=== PATIENT | female | born 1955 | race Caucasian/White ===

== ENCOUNTER 2021-04-21 13:25 | Emergency (ER) | payer MEDICARE, OTHER, SELFPAY ==
--- NOTE | ~2021-04-21 | XR_ITS ---
EXAMINATION: RIGHT ANKLE AND RIGHT FOOT CLINICAL INFORMATION: Right foot pain. COMPARISON: None TECHNIQUE: Right ankle 2 views. Right foot 3 views. FINDINGS: Right foot: There is mild hallux valgus deformity first MTP joint with mild soft tissue swelling. No visible acute fracture, dislocation or lytic process seen. The soft tissues are normal. The ankle mortise and subtalar joints is normal. There is a small calcaneal heel enthesophytes. Right ankle: There is bimalleolar and anterior ankle soft tissue swelling. The ankle mortise and subtalar joints are normal. No visible acute fracture or dislocation seen. 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 There is no visible acute fracture or dislocation. A small calcaneal spurs seen. Mild hallux valgus deformity first MTP joint. No visible acute fracture, dislocation or lytic process seen.
--- NOTE | ~2021-04-21 | XR_ITS ---
EXAMINATION: RIGHT ANKLE AND RIGHT FOOT CLINICAL INFORMATION: Right foot pain. COMPARISON: None TECHNIQUE: Right ankle 2 views. Right foot 3 views. FINDINGS: Right foot: There is mild hallux valgus deformity first MTP joint with mild soft tissue swelling. No visible acute fracture, dislocation or lytic process seen. The soft tissues are normal. The ankle mortise and subtalar joints is normal. There is a small calcaneal heel enthesophytes. Right ankle: There is bimalleolar and anterior ankle soft tissue swelling. The ankle mortise and subtalar joints are normal. No visible acute fracture or dislocation seen. 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 There is no visible acute fracture or dislocation. A small calcaneal spurs seen. Mild hallux valgus deformity first MTP joint. No visible acute fracture, dislocation or lytic process seen.
[2021-04-21 15:46] VITALS: BP 143/73; PULSE 67; RESP 18; TEMP 36.6; O2SAT 98; BMI 25.0
[2021-04-21 16:42] LABS: Hematocrit 40.6 % (37-47); Hemoglobin 13.9 g/dl (12.0-16.0); Mean Corpuscular HGB Conc 34.2 g/dl (31.0-35.0); Mean Corpuscular Hemoglobin 32.3 pg (27.0-33.0); Mean Corpuscular Volume 94.2 fL (80-98); Mean Platelet Volume 10.3 fL (9.4-12.3); Platelet Count 137 X10*3/uL (160-400); Red Blood Count 4.31 X10*6/uL (4.20-5.50); Red Cell Distribution Width 12.5 % (11.0-16.0); White Blood Count 4.8 X10*3/uL (4.8-10.8)
[2021-04-21 17:02] LABS: Anion Gap 12 (12-20); Blood Urea Nitrogen 15 mg/dL (9-16); Calcium 9.8 mg/dL (8.4-10.2); Carbon Dioxide 27 mmol/L (22-29); Chloride 107 mmol/L (96-108); Creatinine Clr Calc Pharmacy 62.9; Estimated Glomerular Filt Rate > 60; Glucose Random 110 mg/dL (60-115); Potassium 4.3 mmol/L (3.3-5.1); Sodium 142 mmol/L (135-145)
--- NOTE | 2021-04-21 17:58 | ED.SKABFB ---
HPI - Skin/Abscess/Foreign Bdy General Chief complaint: Extremity Injury, Lower Stated complaint: inflamation Time Seen by Provider: 04/21/21 17:57 Source: patient Mode of arrival: ambulatory Limitations: no limitations History of Present Illness HPI narrative: Patient is 66 years old female with no significant past medical history notice small rash on dorsum of the right ankle 3 days ago which is getting worse now with increased redness and pain and slight swelling. complaint: rash Related Data Previous Rx's Medication Instructions Recorded cephalexin 500 mg capsule 500 mg PO QID 10 Days #40 cap 04/21/21 doxycycline hyclate 100 mg tablet 100 mg PO BID #20 tab 04/21/21 Allergies Allergy/AdvReac Type Severity Reaction Status Date / Time No Known Allergies Allergy Verified 04/21/21 15:52 Review of Systems Review of Systems: Yes all other systems are reviewed and are negative [facility] Past Medical History Medical History Lymphedema Uterine cancer Social History Social History Advance Directives: No Advance Directives Information Provided: No Physical Exam Vital Signs: Vital Signs: Last Vital Signs Temp 97.8 F 04/21/21 15:46 Pulse 67 04/21/21 15:46 Resp 18 04/21/21 15:46 BP 143/73 H 04/21/21 15:46 Pulse Ox 98 04/21/21 15:46 Body Mass Index 25.0 Const: General: healthy appearing and comfortable Resp: Effort & Inspection: normal respiratory effort Auscultation: clear to auscultation bilaterally Cardio: Rate: regular rate Rhythm: regular rhythm Heart sounds: S1 normal heart sound present and S2 normal heart sound present Extrem: Ankle/foot/toe images: 1. Cellulitic change dorsum of the right ankle no fluctuancy , no open area MDM - Skin/Abscess/Foreign Bdy MDM Narrative Medical decision making narrative: Patient with cellulitis of the right nondiabetic will treat as outpatient on toxic and Keflex. Patient's labs are stable Lab Data Attestation: I reviewed the patient's lab results. Result diagrams: 04/21/21 16:35 04/21/21 16:35 Labs: Lab Results 08/02/21 08/02/21 Range/Units 16:35 16:35 WBC 4.8 (4.8-10.8) X10*3/uL RBC 4.31 (4.20-5.50) X10*6/uL Hgb 13.9 (12.0-16.0) g/dl Hct 40.6 (37-47) % MCV 94.2 (80-98) fL MCH 32.3 (27.0-33.0) pg MCHC 34.2 (31.0-35.0) g/dl RDW 12.5 (11.0-16.0) % Plt Count 137 L (160-400) X10*3/uL MPV 10.3 (9.4-12.3) fL Absolute Nucleated RBC 0.000 (0.0-0.012) X10*3/uL Nucleated RBC % (auto) 0.0 (0.0-0.2) /100WBC Sodium 142 (135-145) mmol/L Potassium 4.3 (3.3-5.1) mmol/L Chloride 107 (96-108) mmol/L Carbon Dioxide 27 (22-29) mmol/L Anion Gap 12 (12-20) BUN 15 (9-16) mg/dL Creatinine 0.77 (0.5-1.4) mg/dL Estim Creat Clear Calc 62.9 Estimated GFR > 60 Random Glucose 110 (60-115) mg/dL Calcium 9.8 (8.4-10.2) mg/dL Discharge Plan Discharge Clinical Impression: Cellulitis Qualifiers: Site of cellulitis: extremity Site of cellulitis of extremity: lower extremity Laterality: right Qualified Code(s): L03.115 - Cellulitis of right lower limb Patient Disposition: Home, Self-Care Instructions: Cellulitis (ED) Additional Instructions: Care as advised Take antibiotic as prescribed Follow-up with PCP if not better Prescriptions: New cephalexin 500 mg capsule 500 mg PO QID 10 Days Qty: 40 RF: 0 doxycycline hyclate 100 mg tablet 100 mg PO BID Qty: 20 RF: 0
[2021-04-21] MEDS: cephALEXin 500 MG CAPSULE 1000 MG PO (18:18)
== END 2021-04-21 18:33 | disposition home or self-care (01) ==
PROVIDERS: Emergency Provider Internal Medicine
DX: L03.115 Cellulitis of right lower limb (principal); M25.571 Pain in right ankle and joints of right foot
CPT/HCPCS: 36415; 73600; 73620; 80048; 85027; 99283